=== PATIENT | male | born 1970 | race Hispanic/Latino ===

== ENCOUNTER 2019-07-07 18:26 | Emergency (ER) | payer SELFPAY ==
[2019-07-07 21:18] LABS: Absolute Lymphocytes (CBC) 2.2 K/uL (0.7-4.9); Basophils % 0.6 % (0-1.3); Hematocrit 47.3 % (39.6-49.0); Lymphocytes % 22.9 % (15.3-44.8); MPV 9.4 fL (7.6-11.3); RBC Red Blood Cell Count 5.35 M/uL (4.33-5.43)
[2019-07-07 21:21] LABS: ALT/SGPT 32 U/L (12-78); AST/SGOT 13 U/L (15-37); Albumin 3.5 g/dL (3.4-5.0); Alkaline Phosphatase 113 U/L (45-117); BUN Blood Urea Nitrogen 9 mg/dL (7-18); Bicarbonate 31 mmol/L (21-32); Bilirubin Direct < 0.1 mg/dL (0-0.2); Bilirubin Total 0.3 mg/dL (0.2-1.0); Glucose Level 112 mg/dL (74-106); Lipase 117 U/L (73-393); Potassium 3.5 mmol/L (3.5-5.1); Protein, Total 7.2 g/dL (6.4-8.2); Sodium Level 141 mmol/L (136-145)
--- NOTE | 2019-07-07 21:37 | ER ---
Nurse's Notes [facility] Name: Junior Rivero Age: 49 yrs Sex: Male : 1970 Arrival Date: 07/07/2019 Time: 18:30 Bed 17 Private MD: Diagnosis: Diarrhea, unspecified Presentation: 07/07 19:03 Presenting complaint: Patient states: " I have had an upset stomach and bubbling in my ph intestines." Mayo V/D or abdominal pain, reports that he is concerned because of having diverticulitis in the past, symptoms began Thurs night. Transition of care: patient was not received from another setting of care. Onset of symptoms was July 07, 2019. Risk Assessment: Do you want to hurt yourself or someone else? Patient reports no desire to harm self or others. Initial Sepsis Screen: Does the patient meet any 2 criteria? No. Patient's initial sepsis screen is negative. Does the patient have a suspected source of infection? No. Patient's initial sepsis screen is negative. Care prior to arrival: None. 19:03 Method Of Arrival: Ambulatory 19:03 Acuity: ALEXA 3 ph Triage Assessment: 20:41 General: Appears in no apparent distress. comfortable, Behavior is calm, cooperative, cc3 appropriate for age. Pain: Complains of pain in abdomen. GI: Abdomen is round non-distended, Bowel sounds present X 4 quads. Abd is soft and non tender X 4 quads. Historical: - Allergies: 19:06 No Known Allergies; ph - Home Meds: 19:06 None [Active]; ph - PMHx: 19:06 Diverticulitis; ph - PSHx: 19:06 None; ph - Immunization history:: Adult Immunizations unknown. - Social history:: Smoking status: Patient uses tobacco products, denies chronic smoking, but will smoke occasionally. - Ebola Screening: : No symptoms or risks identified at this time. Screenin:41 Abuse screen: Denies threats or abuse. Denies injuries from another. Nutritional cc3 screening: No deficits noted. Tuberculosis screening: No symptoms or risk factors identified. Fall Risk Ambulatory Aid- None/Bed Rest/Nurse Assist (0 pts). Gait- Normal/Bed Rest/Wheelchair (0 pts) Mental Status- Oriented to own ability (0 pts). Assessment: 20:41 General: Appears in no apparent distress. comfortable, Behavior is calm, cooperative, cc3 appropriate for age. Pain: Complains of pain in abdomen. Neuro: Level of Consciousness is awake, alert, obeys commands, Oriented to person, place, time, situation, Appropriate for age. Cardiovascular: Denies chest pain, Heart tones S1 S2 present Capillary refill Patient's skin is warm and dry. Respiratory: Airway is patent Respiratory effort is even, unlabored, Respiratory pattern is regular, symmetrical, Breath sounds are clear bilaterally. GI: Abdomen is round non-distended, Bowel sounds present X 4 quads. Abd is soft and non tender X 4 quads. : No signs and/or symptoms were reported regarding the genitourinary system. EENT: No signs and/or symptoms were reported regarding the EENT system. Derm: Skin is intact, is healthy with good turgor, Skin is pink, warm \\T\\ dry. normal. Musculoskeletal: Circulation, motion, and sensation intact. Range of motion: intact in all extremities. 21:18 Reassessment: Patient appears in no apparent distress at this time. Patient and/or cc3 family updated on plan of care and expected duration. Pain level reassessed. Patient is alert, oriented x 3, equal unlabored respirations, skin warm/dry/pink. 22:15 Reassessment: Patient appears in no apparent distress at this time. Patient and/or cc3 family updated on plan of care and expected duration. Pain level reassessed. Patient is alert, oriented x 3, equal unlabored respirations, skin warm/dry/pink. NURSES DIRECTOR Mickail discharged the patient home, no prescription given. IV cannula removed and patient left ER vitally stable and ambulatory. No valuables left in the patient's room. Patient denies pain at this time. Patient states feeling better. Patient states symptoms have improved. Vital Signs: 19:05 BP 167 / 106; Pulse 90; Resp 18; Temp 99.2; Pulse Ox 100% on R/A; Weight 99.79 kg; ph Height 5 ft. 7 in. (170.18 cm); 20:45 BP 163 / 99; Pulse 93; Resp 17 S; Pulse Ox 100% on R/A; cc3 21:50 BP 158 / 89; Pulse 89; Resp 18 S; Pulse Ox 99% on R/A; cc3 19:05 Body Mass Index 34.46 (99.79 kg, 170.18 cm) ED Course: 18:30 Patient arrived in ED. mr 19:05 Triage completed. ph 19:06 Arm band placed on Patient placed in an exam room. 19:55 Gretchen Penn PA is PHCP. [facility] 19:55 Bry Herrmann MD is Attending Physician. [facility] 20:03 Sheila Santana, RN is Primary Nurse. bb 20:29 Radiology exam delayed due to lab results not completed at this time. (BUN/Creatinine). bq 20:41 Cindy Linder is Primary Nurse. cc3 20:41 Patient has correct armband on for positive identification. Bed in low position. Call cc3 light in reach. Side rails up X2. Pulse ox on. NIBP on. 20:45 Inserted saline lock: 20 gauge in left antecubital area, using aseptic technique. Blood cc3 collected. 20:46 Note: ct exam has been cancelled by gretchen penn. bq 22:15 No provider procedures requiring assistance completed. IV discontinued, intact, cc3 bleeding controlled, No redness/swelling at site. Pressure dressing applied. Administered Medications: No medications were administered Outcome: 21:36 Discharge ordered by MD. [facility] 22:15 Discharged to home ambulatory. cc3 22:15 Condition: stable 22:15 Discharge instructions given to patient, Instructed on discharge instructions, follow up and referral plans. Demonstrated understanding of instructions, follow-up care. 22:21 Patient left the ED. cc3 Signatures: Gretchen Penn PA PA jmm Anjel Kristen Angela Rasmussen Sheila Santana, RN RN Abbi Browning RN RN Cindy Linder cc3
--- NOTE | 2019-07-07 21:38 | EDPHYS ---
Physician Documentation [facility] Name: Junior Rivero Age: 49 yrs Sex: Male : 1970 Arrival Date: 07/07/2019 Time: 18:30 Bed 17 Private MD: ED Physician Bry Herrmann HPI: 07/07 20:32 This 49 yrs old Male presents to ER via Ambulatory with complaints of jmm Abdominal Pain. 20:32 The patient presents with. jmm 20:32 Onset: The symptoms/episode began/occurred gradually, 2 day(s) ago. Possible causes: jmm unknown. The symptoms are aggravated by nothing. The symptoms are alleviated by nothing. Associated signs and symptoms: Pertinent negatives: abdominal pain, fever, vomiting. This is a 49 year old male with a history of diverticulitis that presents to the ED with complaints of diarrhea, upset stomach beginning 2 days ago. Patient si concerned due to previous episode of diverticulitis which the patient did not address as soon. . Historical: - Allergies: 19:06 No Known Allergies; ph - Home Meds: 19:06 None [Active]; ph - PMHx: 19:06 Diverticulitis; ph - PSHx: 19:06 None; ph - Immunization history:: Adult Immunizations unknown. - Social history:: Smoking status: Patient uses tobacco products, denies chronic smoking, but will smoke occasionally. - Ebola Screening: : No symptoms or risks identified at this time. ROS: 20:32 Constitutional: Negative for fever, chills, and weight loss, Cardiovascular: Negative jmm for chest pain, palpitations, and edema, Respiratory: Negative for shortness of breath, cough, wheezing, and pleuritic chest pain. 20:32 Abdomen/GI: Positive for diarrhea. 20:32 All other systems are negative. Exam: 20:32 Constitutional: This is a well developed, well nourished patient who is awake, alert, jmm and in no acute distress. Head/Face: atraumatic. Eyes: EOMI, no conjunctival erythema appreciated ENT: Moist Mucus Membranes Neck: Trachea midline, Supple Chest/axilla: Normal chest wall appearance and motion. Cardiovascular: Regular rate and rhythm. No edema appreciated Respiratory: Normal respirations, no respiratory distress appreciated 20:32 Back: Normal ROM Skin: General appearance color normal MS/ Extremity: Moves all extremities, no obvious deformities appreciated, no edema noted to the lower extremities Neuro: Awake and alert, normal gait Psych: Behavior is normal, Mood is normal, Patient is cooperative and pleasant 20:32 Abdomen/GI: Inspection: abdomen appears normal, Bowel sounds: normal, Palpation: abdomen is soft and non-tender, in all quadrants. Vital Signs: 19:05 BP 167 / 106; Pulse 90; Resp 18; Temp 99.2; Pulse Ox 100% on R/A; Weight 99.79 kg; ph Height 5 ft. 7 in. (170.18 cm); 20:45 BP 163 / 99; Pulse 93; Resp 17 S; Pulse Ox 100% on R/A; cc3 21:50 BP 158 / 89; Pulse 89; Resp 18 S; Pulse Ox 99% on R/A; cc3 19:05 Body Mass Index 34.46 (99.79 kg, 170.18 cm) ph MDM: 20:03 Patient medically screened. [facility] 21:34 Data reviewed: vital signs, nurses notes. Counseling: I had a detailed discussion with rebeka the patient and/or guardian regarding: the historical points, exam findings, and any diagnostic results supporting the discharge/admit diagnosis, lab results, the need for outpatient follow up, to return to the emergency department if symptoms worsen or persist or if there are any questions or concerns that arise at home. ED course: No abdominal pain on repeat palpation. I do not currently suspect an acute intraabdominal process. Patient was otherwise given strict return precautions. patient understood and agrees with the plan of care. . 07/07 20:14 Order name: Basic Metabolic Panel; Complete Time: 21:24 [facility] 07/07 20:14 Order name: CBC with Diff; Complete Time: 21:24 [facility] 07/07 20:14 Order name: Creatinine for Radiology; Complete Time: 21:24 [facility] 07/07 20:14 Order name: Hepatic Function; Complete Time: 21:24 [facility] 07/07 20:14 Order name: Lipase; Complete Time: 21:24 [facility] 07/07 22:15 Order name: Urine Dipstick--Ancillary (enter results) ar5 07/07 20:14 Order name: IV Saline Lock; Complete Time: 20:57 [facility] 07/07 20:14 Order name: Labs collected and sent; Complete Time: 20:57 [facility] 07/07 20:14 Order name: Urine Dipstick-Ancillary (obtain specimen); Complete Time: 22:05 [facility] Administered Medications: No medications were administered Disposition: 07/07/19 21:36 Discharged to Home. Impression: Diarrhea, unspecified. - Condition is Stable. - Discharge Instructions: Food Choices to Help Relieve Diarrhea, Adult. - Medication Reconciliation Form, Thank You Letter, Antibiotic Education, Prescription Opioid Use form. - Follow up: Private Physician; When: 2 - 3 days; Reason: Recheck today's complaints, Continuance of care, Re-evaluation by your physician. Addendum: 07/09/2019 09:25 Co-signature as Attending Physician, Bry Herrmann MD I agree with the assessment and c torrez plan of care. Signatures: Dispatcher [employer] [facility] Bry Herrmann MD MD cha Mickail, Joel, PA PA [facility] Abbi Browning, RN RN Cindy Ernst cc3 Corrections: (The following items were deleted from the chart) 07/07 20:52 20:15 Abdomen Pelvis W Con+CT.RAD.BRZ ordered. [facility] 21:36 21:36 07/07/2019 21:36 Discharged to Home. Impression: Lower abdominal pain, [facility] unspecified. Condition is Stable. Forms are Medication Reconciliation Form, Thank You Letter, Antibiotic Education, Prescription Opioid Use. Follow up: Private Physician; When: 2 - 3 days; Reason: Recheck today's complaints, Continuance of care, Re-evaluation by your physician. [facility] 22:21 21:36 07/07/2019 21:36 Discharged to Home. Impression: Diarrhea, unspecified. Condition cc3 is Stable. Forms are Medication Reconciliation Form, Thank You Letter, Antibiotic Education, Prescription Opioid Use. Follow up: Private Physician; When: 2 - 3 days; Reason: Recheck today's complaints, Continuance of care, Re-evaluation by your physician. [facility]
[2019-07-07 23:03] LABS: Urine Blood NEGATIVE (NEG); Urine Glucose NEGATIVE (NEG); Urine Protein NEGATIVE (NEG); Urine pH 6.5 (5.0-7.0)
[2019-07-07 23:04] VITALS: BP 167/106; TEMP 99.2; O2SAT 100
== END 2019-07-07 22:21 | disposition home or self-care (01) ==
LOC: ER 18:26
DX: R19.7 Diarrhea, unspecified (principal); Z72.0 Tobacco use
CPT/HCPCS: 36415; 80048; 80076; 81003; 83690; 85025; 99283

== ENCOUNTER 2019-07-15 19:34 | Emergency (ER) | payer SELFPAY ==
[2019-07-15] MEDS ORDERED: METOCLOPRAMIDE 10 MG/2mL INJ ONE (20:08)
[2019-07-15] MEDS ORDERED: DIPHENHYDRAMINE 50 MG/ML VIAL ONE (20:08)
--- NOTE | 2019-07-15 20:22 | RAD REPORT ---
EXAM DESCRIPTION: CT - Head Brain Wo Cont - 07/15/2019 8:09 pm CLINICAL HISTORY: Acute onset right-sided headache COMPARISON: None. TECHNIQUE: Axial 5 mm thick images of the head were obtained without IV contrast. All CT scans are performed using dose optimization technique as appropriate and may include automated exposure control or mA/KV adjustment according to patient size. FINDINGS: No intracranial hemorrhage, mass, edema or shift of mid-line structures. No acute infarcti on changes seen. No abnormal extra-axial fluid collections. Ventricles are normal. Mastoid air cells and visualized portions of the paranasal sinuses are clear. No acute bony findings. IMPRESSION: Negative non-contrast CT head examination.
[2019-07-15] MEDS ORDERED: PEN G BENZ LA 1.2MU/2ML SYRINGE IM ONE (20:26)
--- NOTE | 2019-07-15 20:28 | EDPHYS ---
Physician Documentation [facility] Name: Junior Rivero Age: 49 yrs Sex: Male : 1970 Arrival Date: 07/15/2019 Time: 19:37 Bed 4 Private MD: ED Physician Saurav Jones HPI: 07/15 19:56 This 49 yrs old Male presents to ER via Ambulatory with complaints of Headache.jr8 19:56 The patient complains of pain to the forehead, right temporal area and right eye. The jr8 patient describes the headache as throbbing. Onset: The symptoms/episode began/occurred acutely, today. Associated signs and symptoms: Pertinent positives: near syncope. Severity of symptoms: At its worst the pain was moderate, in the emergency department the pain is unchanged. The patient has not experienced similar symptoms in the past. The patient has not recently seen a physician. Patient stated that he had sudden onset severe headache that is not going away. Stated that it was so intense earlier that he felt that he was going to pass out. Denies any other symptoms. No recent illness, drug use, or medication change . Historical: - Allergies: 19:45 No Known Allergies; aa1 - Home Meds: 19:45 None [Active]; aa1 - PMHx: 19:45 Diverticulitis; aa1 - PSHx: 19:45 None; aa1 - Immunization history:: Flu vaccine is not up to date. - Social history:: Smoking status: Patient uses tobacco products, denies chronic smoking, but will smoke occasionally. - Ebola Screening: : Patient denies exposure to infectious person Patient denies travel to an Ebola-affected area in the 21 days before illness onset. ROS: 19:56 Eyes: Negative for injury, pain, redness, and discharge, ENT: Negative for injury, jr8 pain, and discharge, Neck: Negative for injury, pain, and swelling, Cardiovascular: Negative for chest pain, palpitations, and edema, Respiratory: Negative for shortness of breath, cough, wheezing, and pleuritic chest pain, Abdomen/GI: Negative for abdominal pain, nausea, vomiting, diarrhea, and constipation, Back: Negative for injury and pain, MS/Extremity: Negative for injury and deformity, Skin: Negative for injury, rash, and discoloration. 19:56 Neuro: Positive for headache, near syncope. Exam: 19:56 Eyes: Pupils equal round and reactive to light, extra-ocular motions intact. Lids and jr8 lashes normal. Conjunctiva and sclera are non-icteric and not injected. Cornea within normal limits. Periorbital areas with no swelling, redness, or edema. ENT: Nares patent. No nasal discharge, no septal abnormalities noted. Tympanic membranes are normal and external auditory canals are clear. Oropharynx with no redness, swelling, or masses, exudates, or evidence of obstruction, uvula midline. Mucous membranes moist. Neck: Trachea midline, no thyromegaly or masses palpated, and no cervical lymphadenopathy. Supple, full range of motion without nuchal rigidity, or vertebral point tenderness. No Meningismus. Cardiovascular: Regular rate and rhythm with a normal S1 and S2. No gallops, murmurs, or rubs. Normal PMI, no JVD. No pulse deficits. Respiratory: Lungs have equal breath sounds bilaterally, clear to auscultation and percussion. No rales, rhonchi or wheezes noted. No increased work of breathing, no retractions or nasal flaring. Abdomen/GI: Soft, non-tender, with normal bowel sounds. No distension or tympany. No guarding or rebound. No evidence of tenderness throughout. Back: No spinal tenderness. No costovertebral tenderness. Full range of motion. Skin: Warm, dry with normal turgor. Normal color with no rashes, no lesions, and no evidence of cellulitis. MS/ Extremity: Pulses equal, no cyanosis. Neurovascular intact. Full, normal range of motion. Neuro: Awake and alert, GCS 15, oriented to person, place, time, and situation. Cranial nerves II-XII grossly intact. Motor strength 5/5 in all extremities. Sensory grossly intact. Cerebellar exam normal. Normal gait. Vital Signs: 19:45 BP 149 / 100; Pulse 80; Resp 16; Temp 98.5; Pulse Ox 96% on R/A; Weight 98.88 kg (R); aa1 Height 5 ft. 7 in. (170.18 cm); Pain 8/10; 19:45 Body Mass Index 34.14 (98.88 kg, 170.18 cm) aa1 MDM: 19:52 Patient medically screened. jr8 20:26 Data reviewed: vital signs, nurses notes, radiologic studies, CT scan. Data jr8 interpreted: Pulse oximetry: on room air is 96 %. Interpretation: normal. Counseling: I had a detailed discussion with the patient and/or guardian regarding: the historical points, exam findings, and any diagnostic results supporting the discharge/admit diagnosis, radiology results, the need for outpatient follow up, a family practitioner, to return to the emergency department if symptoms worsen or persist or if there are any questions or concerns that arise at home. Response to treatment: the patient's symptoms have markedly improved after treatment. 07/15 19:56 Order name: CT Head Brain wo Cont; Complete Time: 20:23 jr8 07/15 19:56 Order name: IV; Complete Time: 20:04 jr8 Administered Medications: 20:17 Drug: Reglan 10 mg Route: IVP; Site: right forearm; jd3 20:43 Follow up: Response: No adverse reaction jd3 20:17 Drug: Benadryl 25 mg Route: IVP; Site: right forearm; jd3 20:43 Follow up: Response: No adverse reaction jd3 Disposition: 21:54 Co-signature as Attending Physician, Saurav Jones MD. rn Disposition: 07/15/19 20:27 Discharged to Home. Impression: Migraine. - Condition is Stable. - Discharge Instructions: Migraine Headache. - Medication Reconciliation Form, Thank You Letter, Antibiotic Education, Prescription Opioid Use form. - Follow up: Private Physician; When: 2 - 3 days; Reason: Recheck today's complaints, Continuance of care, Re-evaluation by your physician. - Problem is new. - Symptoms have improved. Signatures: Dispatcher [employer] EDZena Denson RN RN aa1 Saurav Jones MD MD rn Roszak, Josh, PA PA jr8 Jose Yan RN RN jd3 Corrections: (The following items were deleted from the chart) 20:43 20:27 07/15/2019 20:27 Discharged to Home. Impression: Migraine. Condition is Stable. jd3 Forms are Medication Reconciliation Form, Thank You Letter, Antibiotic Education, Prescription Opioid Use. Follow up: Private Physician; When: 2 - 3 days; Reason: Recheck today's complaints, Continuance of care, Re-evaluation by your physician. Problem is new. Symptoms have improved. jr8
--- NOTE | 2019-07-15 20:28 | ER ---
Nurse's Notes [facility] Name: Junior Rivero Age: 49 yrs Sex: Male : 1970 Arrival Date: 07/15/2019 Time: 19:37 Bed 4 Private MD: Diagnosis: Migraine Presentation: 07/15 19:43 Presenting complaint: Patient states: R sided ACOSTA x 3 hrs. Reports he took Aleve but it aa1 did not help. Denies any other symptoms. States he was concerned bc he never gets headaches. Transition of care: patient was not received from another setting of care. Onset of symptoms was July 15, 2019. Risk Assessment: Do you want to hurt yourself or someone else? Patient reports no desire to harm self or others. Initial Sepsis Screen: Does the patient meet any 2 criteria? No. Patient's initial sepsis screen is negative. Does the patient have a suspected source of infection? No. Patient's initial sepsis screen is negative. Care prior to arrival: None. 19:43 Method Of Arrival: Ambulatory aa1 19:43 Acuity: ALEXA 4 aa1 Triage Assessment: 19:45 Headache History: Denies prior headaches. General: Appears in no apparent distress. aa1 comfortable, Behavior is calm, cooperative, appropriate for age. 20:10 Pain: Pain level that patient reports is acceptable is 3 out of 10 on a pain scale. jd3 Pain began gradually, Also complains of no other associated symptoms. Historical: - Allergies: 19:45 No Known Allergies; aa1 - Home Meds: 19:45 None [Active]; aa1 - PMHx: 19:45 Diverticulitis; aa1 - PSHx: 19:45 None; aa1 - Immunization history:: Flu vaccine is not up to date. - Social history:: Smoking status: Patient uses tobacco products, denies chronic smoking, but will smoke occasionally. - Ebola Screening: : Patient denies exposure to infectious person Patient denies travel to an Ebola-affected area in the 21 days before illness onset. Screenin:09 Abuse screen: Denies threats or abuse. Nutritional screening: No deficits noted. jd3 Tuberculosis screening: Tuberculosis screening: No symptoms or risk factors identified. Fall Risk Ambulatory Aid- None/Bed Rest/Nurse Assist (0 pts). Gait- Normal/Bed Rest/Wheelchair (0 pts) Mental Status- Oriented to own ability (0 pts). Total Short Fall Scale indicates No Risk (0-24 pts). Assessment: 20:07 General: Appears in no apparent distress. uncomfortable, Behavior is calm, cooperative, jd3 appropriate for age. Pain: Complains of pain in head and right temporal area Quality of pain is described as aching, pressure. Neuro: Level of Consciousness is awake, alert, obeys commands, Oriented to person, place, time, situation, Denies weakness dizziness, numbness diplopia. Cardiovascular: Denies chest pain, Capillary refill Patient's skin is warm and dry. Respiratory: Airway is patent Respiratory effort is even, unlabored, Respiratory pattern is regular, symmetrical, Denies cough, shortness of breath. GI: No signs and/or symptoms were reported involving the gastrointestinal system. : No signs and/or symptoms were reported regarding the genitourinary system. EENT: No signs and/or symptoms were reported regarding the EENT system. Derm: Skin is intact, Skin is dry, Skin is normal, Skin temperature is warm. Musculoskeletal: Circulation, motion, and sensation intact. Range of motion: intact in all extremities. 20:42 Reassessment: Patient appears in no apparent distress at this time. Patient and/or jd3 family updated on plan of care and expected duration. Pain level reassessed. Patient is alert, oriented x 3, equal unlabored respirations, skin warm/dry/pink. reported understanding of discharge instructions. even and steady gait upon discharge. Patient denies pain at this time. Patient states feeling better. Vital Signs: 19:45 BP 149 / 100; Pulse 80; Resp 16; Temp 98.5; Pulse Ox 96% on R/A; Weight 98.88 kg (R); aa1 Height 5 ft. 7 in. (170.18 cm); Pain 8/10; 19:45 Body Mass Index 34.14 (98.88 kg, 170.18 cm) aa1 ED Course: 19:37 Patient arrived in ED. jg7 19:44 Triage completed. aa1 19:45 Arm band placed on right wrist. Patient placed in waiting room, Patient notified of aa1 wait time. 19:51 [facility] jr8 19:52 Saurav Jones MD is Attending Physician. jr8 19:58 Jose Yan, RN is Primary Nurse. jd3 20:00 Verbal reassurance given. pt reporting stress at home. jd3 20:08 CT completed. Patient tolerated procedure well. Patient moved back from CT. bq 20:09 CT Head Brain wo Cont In Process Unspecified. EDMS 20:09 Patient has correct armband on for positive identification. Placed in gown. Bed in low jd3 position. Call light in reach. Side rails up X 1. Adult w/ patient. 20:09 Inserted saline lock: 20 gauge in left forearm, using aseptic technique. jd3 20:43 No provider procedures requiring assistance completed. IV discontinued, intact, jd3 bleeding controlled, No redness/swelling at site. Pressure dressing applied. Administered Medications: 20:17 Drug: Reglan 10 mg Route: IVP; Site: right forearm; jd3 20:43 Follow up: Response: No adverse reaction jd3 20:17 Drug: Benadryl 25 mg Route: IVP; Site: right forearm; jd3 20:43 Follow up: Response: No adverse reaction jd3 Outcome: 20:27 Discharge ordered by . jr8 20:43 Discharged to home ambulatory, with family. jd3 20:43 Condition: stable 20:43 Discharge instructions given to patient, Instructed on discharge instructions, follow up and referral plans. Demonstrated understanding of instructions, follow-up care. 20:43 Patient left the ED. jd3 Signatures: Dispatcher [employer] EDNJ Zena Mustafa RN RN aa1 Angela Mart Josh, PA PA jr8 Davies, Jonathon, RN RN jd3 Melanie Stubbs jg7 Corrections: (The following items were deleted from the chart) 20:25 20:00 Verbal reassurance given. jd3 jd3
[2019-07-15 23:43] VITALS: BP 149/100; TEMP 98.5; O2SAT 96
== END 2019-07-15 20:43 | disposition home or self-care (01) ==
LOC: ER 19:34
DX: G43.909 Migraine, unspecified, not intractable, without status migrainosus (principal); Z72.0 Tobacco use
CPT/HCPCS: 70450; 96374; 96375; 99284; J0561; J1200; J2765